=== PATIENT | female | born 1990 | race Asian ===

== ENCOUNTER 2020-11-10 11:59 | Emergency (ER) | payer BC ==
[~2020-11-10] VITALS: Ht 167.6 cm; Wt 58.0 kg
[2020-11-10] MEDS ORDERED: BACITRACIN ZINC OINT UDPKT TOP ONE (12:45)
[2020-11-10] MEDS ORDERED: LIDOCAINE HCL/EPINEPHRINE 1%-EPI 1:100,000 20 ML VIAL INFIL ONE (12:45)
[2020-11-10] MEDS ORDERED: ACETAMINOPHEN 500MG TABLET PO ONE (13:15)
[2020-11-10 14:42] VITALS: BP 118/74
== END 2020-11-10 14:42 | disposition home or self-care (01) ==
LOC: ER 12:20
DX: S01.81XA Laceration without foreign body of other part of head, initial encounter (principal); M25.532 Pain in left wrist; Z88.0 Allergy status to penicillin; V00.831A Fall from motorized mobility scooter, initial encounter; Y93.89 Activity, other specified; Y92.488 Other paved roadways as the place of occurrence of the external cause
CPT/HCPCS: 73110; 73130; 99284; Z7610